=== PATIENT | male | born 1945 | race Caucasian/White ===

== ENCOUNTER 2017-08-28 03:44 | Inpatient (IN) | payer OTHER, MEDICARE ==
[2017-08-28] MEDS ORDERED: NITROSTAT SL ONE ×3 (03:45→03:57)
[2017-08-28] MEDS ORDERED: LASIX IV ONE ×4 (03:45→03:57)
[2017-08-28] MEDS ORDERED: LASIX 60 MG in NACL 0.9% 50 ML IV ONE (03:52)
--- NOTE | 2017-08-28 04:02 | Emergency Department Report ---
ED Shortness of Breath HPI - General Stated Complaint: STANLEY Time Seen by Provider: 08/28/17 03:54 Source: family, EMS Mode of arrival: Stretcher Limitations: No Limitations, Physical Limitation - History of Present Illness Initial Comments: Patient is 72 years old patient male brought in by EMS in acute respiratory distress. Patient had a history of congestive heart failure status post CABG and hypertension. Patient's son stated that patient's symptoms started this morning with difficulty breathing. No recent fever cough. No nausea no vomiting. Initial oxygen saturation by EMS report was 68% on room air, respiratory rate was 38/m patient immediately placed on BiPAP and given a breathing treatment by EMS. MD Complaint: shortness of breath, cough -: This morning Severity: severe Consistency: constant Known History Of: congestive heart failure Treatments Prior to Arrival: oxygen, bronchodilator - Related Data Home Medications Medication Instructions Recorded Confirmed Last Taken Losartan [Cozaar] 25 mg PO QDAY 09/23/14 08/28/17 08/27/17 Omeprazole [PriLOSEC] 40 mg PO DAILY 09/23/14 08/28/17 08/27/17 Furosemide [Lasix] 40 mg PO DAILY 01/11/15 08/28/17 08/27/17 Finasteride [Proscar] 5 mg PO QDAY 08/28/17 08/28/17 08/27/17 Tamsulosin HCl [Flomax] 0.4 mg PO DAILY 08/28/17 08/28/17 08/27/17 Previous Rx's Medication Instructions Recorded Last Taken Type Aspirin [Aspirin BABY CHEW TAB] 81 mg PO DAILY #30 tab.chew 11/29/15 08/27/17 Rx AtorvaSTATin [Lipitor] 40 mg PO DAILY #30 tablet 11/29/15 08/27/17 Rx Carvedilol [Coreg] 25 mg PO BID #60 tablet 11/29/15 08/27/17 Rx Clopidogrel [Plavix] 75 mg PO QDAY #30 tablet 11/29/15 08/27/17 Rx Insulin NPH/Regular [NovoLIN 70/30] 25 unit SUB-Q BIDDIAB #1 vial 11/29/1508/27 Rx Allergies Allergy/AdvReac Type Severity Reaction Status Date / Time lisinopril Allergy Severe Shortness Verified 11/28/15 12:04 of Breath ED Review of Systems ROS: Stated complaint: STANLEY Other details as noted in HPI Comment: All other systems reviewed and negative Constitutional: denies: chills, fever Respiratory: orthopnea, shortness of breath, SOB with exertion, SOB at rest. denies: stridor, wheezing Cardiovascular: palpitations, dyspnea on exertion, orthopnea, edema. denies: chest pain Gastrointestinal: denies: abdominal pain, nausea, vomiting, diarrhea, constipation, hematemesis, melena, hematochezia Genitourinary: denies: urgency, frequency Neurological: denies: headache, weakness, numbness, paresthesias, confusion, abnormal gait, vertigo ED Past Medical Hx - Past Medical History Hx Hypertension: Yes Hx CVA: Yes (x3 right sided def) Hx Heart Attack/AMI: Yes Hx Congestive Heart Failure: Yes Hx Diabetes: Yes Hx Deep Vein Thrombosis: Yes - Surgical History Hx Open Heart Surgery: Yes Additional Surgical History: Bypass. pacemaker february 2015 - Social History Smoking Status: Never Smoker Substance Use Type: None - Medications Home Medications: Home Medications Medication Instructions Recorded Confirmed Last Taken Type Losartan [Cozaar] 25 mg PO QDAY 09/23/14 08/28/17 08/27/17 History Omeprazole [PriLOSEC] 40 mg PO DAILY 09/23/14 08/28/17 08/27/17 History Furosemide [Lasix] 40 mg PO DAILY 01/11/15 08/28/17 08/27/17 History Aspirin [Aspirin BABY CHEW TAB] 81 mg PO DAILY #30 tab.chew 11/29/15 08/28/17 Rx AtorvaSTATin [Lipitor] 40 mg PO DAILY #30 tablet 11/29/15 08/28/17 08/27/17 Rx Carvedilol [Coreg] 25 mg PO BID #60 tablet 11/29/15 08/28/17 08/27/17 Rx Clopidogrel [Plavix] 75 mg PO QDAY #30 tablet 11/29/15 08/28/17 08/27/17 Rx Insulin NPH/Regular [NovoLIN 70/30] 25 unit SUB-Q BIDDIAB #1 vial 11/29/1508/2808/27/17 Rx Finasteride [Proscar] 5 mg PO QDAY 08/28/17 08/28/17 08/27/17 History Tamsulosin HCl [Flomax] 0.4 mg PO DAILY 08/28/17 08/28/17 08/27/17 History ED Physical Exam - General Limitations: No Limitations, Physical Limitation General appearance: in distress (patient is tachypneic and in no acute respiratory distress) - Head Head exam: Present: atraumatic, normocephalic, normal inspection - Eye Eye exam: Present: normal appearance, PERRL - ENT ENT exam: Present: normal exam, normal orophraynx - Neck Neck exam: Present: normal inspection, full ROM. Absent: tenderness, meningismus, lymphadenopathy, thyromegaly - Respiratory Respiratory exam: Present: respiratory distress, rales, rhonchi, accessory muscle use, decreased breath sounds. Absent: wheezes, stridor - Cardiovascular Cardiovascular Exam: Present: tachycardia - GI/Abdominal GI/Abdominal exam: Present: soft, normal bowel sounds. Absent: distended, tenderness, guarding, rebound, rigid, organomegaly, mass, bruit, pulsatile mass , hernia - Extremities Exam Extremities exam: Present: normal inspection, full ROM, normal capillary refill , pedal edema. Absent: tenderness, joint swelling, calf tenderness - Back Exam Back exam: Present: normal inspection, full ROM. Absent: tenderness, CVA tenderness (R), CVA tenderness (L), muscle spasm, paraspinal tenderness, vertebral tenderness - Neurological Exam Neurological exam: Present: alert, oriented X3, CN II-XII intact, normal gait - Skin Skin exam: Present: warm, intact, normal color. Absent: cyanosis, diaphoretic, erythema ED Course Vital Signs 08/28/17 08/28/17 08/28/17 03:40 03:48 03:55 Pulse Rate 129 H 129 H Respiratory 40 H Rate Blood Pressure 254/157 Blood Pressure 254/157 [Left] O2 Sat by Pulse 63 L Oximetry 08/28/17 08/28/17 08/28/17 03:59 04:00 04:30 Pulse Rate 130 H 115 H 95 H Respiratory 38 H 33 H 45 H Rate Blood Pressure 143/89 254/157 211/108 Blood Pressure [Left] O2 Sat by Pulse 100 100 100 Oximetry 08/28/17 08/28/17 08/28/17 04:59 05:00 05:30 Pulse Rate 93 H 86 Respiratory 24 20 20 Rate Blood Pressure 165/99 171/102 Blood Pressure [Left] O2 Sat by Pulse 100 100 100 Oximetry 08/28/17 08/28/17 08/28/17 06:00 06:30 07:00 Pulse Rate 82 90 89 Respiratory 25 H 21 21 Rate Blood Pressure 171/102 196/121 208/118 Blood Pressure [Left] O2 Sat by Pulse 100 100 100 Oximetry 08/28/17 08/28/17 08/28/17 08:00 08:10 08:11 Pulse Rate 98 H 99 H 109 H Respiratory 20 28 H Rate Blood Pressure 207/125 221/125 221/125 Blood Pressure [Left] O2 Sat by Pulse 98 99 Oximetry 08/28/17 08/28/17 08/28/17 08:20 08:35 08:41 Pulse Rate 110 H 116 H Respiratory 25 H 31 H Rate Blood Pressure 221/125 175/101 175/101 Blood Pressure [Left] O2 Sat by Pulse 98 97 98 Oximetry 08/28/17 08/28/17 08:51 09:00 Pulse Rate 114 H 110 H Respiratory 14 26 H Rate Blood Pressure 175/101 Blood Pressure 175/101 [Left] O2 Sat by Pulse 99 97 Oximetry ED Medical Decision Making - Lab Data Result diagrams: 08/29/17 05:11 08/29/17 05:11 - EKG Data -: EKG Interpreted by Al EKG shows normal: sinus rhythm Rate: tachycardia - EKG Data Interpretation: no acute changes - Radiology Data Radiology results: report reviewed Referring Physician: KRISTINA TAYLOR Patient Name: RAVI BROOKS Date of : 1945 Sex: Male Report Date: 2017-08-28 Report Status: Finalized Findings [address] [address] XRay Report Signed Patient: RAVI BROOKS MR#: [id number] : 1945 Acct:[id number] Age/Sex: 72 / M ADM Date: 08/28/17 Loc: ED Attending Dr: Ordering Physician: KRISTINA TAYLOR Date of Service: 08/28/17 Procedure(s): XR chest 1V ap Accession Number(s): [id number] cc: KRISTINA TAYLOR Fluoro Time In Minutes: FINAL REPORT EXAM: XR CHEST 1V AP HISTORY: Dyspnea TECHNIQUE: A portable supine view the chest was obtained and compared to the study of 11/27/2015. FINDINGS: The heart is moderately enlarged. There are sternotomy sutures. There is a pacemaker overlying the left chest wall with the limb in the right ventricle. The lungs appear mildly congested. There are no localized infiltrates or effusions. The bones and soft tissues appear well maintained IMPRESSION: Cardiomegaly with mild vascular congestion. No localized infiltrates. Transcribed By: RB Dictated By: JUDE FORRESTER MD Electronically Authenticated By: JUDE FORRESTER MD Signed Date/Time: 08/28/1721 DD/ TD/TT: 08/28/1721 - Medical Decision Making Discussed with Dr. Bren Bai, I presented the patient, she agreed to admit the patient to her service. Critical Care Time: Yes Critical care time in (mins) excluding proc time.: 35 Critical care attestation.: If time is entered above; I have spent that time in minutes in the direct care of this critically ill patient, excluding procedure time. ED Disposition Clinical Impression: Acute respiratory distress, Acute respiratory failure with hypoxemia, Acute on chronic congestive heart failure Disposition: OP ADMIT IP TO THIS HOSP Is pt being admited?: Yes Condition: Stable
--- NOTE | 2017-08-28 04:25 | XRay Report ---
FINAL REPORT EXAM: XR CHEST 1V AP HISTORY: Dyspnea TECHNIQUE: A portable supine view the chest was obtained and compared to the study of 11/27/2015. FINDINGS: The heart is moderately enlarged. There are sternotomy sutures. There is a pacemaker overlying the left chest wall with the limb in the right ventricle. The lungs appear mildly congested. There are no localized infiltrates or effusions. The bones and soft tissues appear well maintained IMPRESSION: Cardiomegaly with mild vascular congestion. No localized infiltrates.
[2017-08-28 04:46] LABS: Basophils # (Auto) 0.1 K/mm3 (0.0-0.1); Basophils % (Auto) 0.6 % (0.0-1.8); Eosinophils # (Auto) 0.1 K/mm3 (0.0-0.4); Eosinophils % (Auto) 1.4 % (0.0-4.3); Hematocrit 45.4 % (35.5-45.6); Hemoglobin 15.1 gm/dl (11.8-15.2); Lymphocytes # (Auto) 1.4 K/mm3 (1.2-5.4); Lymphocytes % (Auto) 15.3 % (13.4-35.0); Mean Corpuscular HGB Conc 33 % (32-34); Mean Corpuscular Hemoglobin 29 pg (28-32); Mean Corpuscular Volume 86 fl (84-94); Monocytes # (Auto) 0.5 K/mm3 (0.0-0.8); Monocytes % (Auto) 5.4 % (0.0-7.3); Platelet Count 205 K/mm3 (140-440); Red Cell Distribution Width 13.8 % (13.2-15.2)
[2017-08-28 04:55] LABS: Albumin 4.2 g/dL (3.9-5); Calcium 8.7 mg/dL (8.4-10.2)
[2017-08-28 05:30] LABS: Chol/HDL Ratio 4.94 %
[2017-08-28] MEDS ORDERED: ZOFRAN IV PRN (05:50)
[2017-08-28] MEDS ORDERED: TYLENOL PO PRN (05:50)
--- NOTE | 2017-08-28 05:58 | History and Physical Report ---
History of Present Illness Date of examination: 08/28/17 History of present illness: 72-year-old a history of CHF, hypertension, diabetes, coronary artery disease, chronic kidney disease, history of CVA was brought to the emergency room because he was awoke from sleep with acute shortness of breath. He was hypoxic in the emergency room with saturation of 85%, he was placed on BiPAP and given IV Lasix. Patient is very me speaking, history was per the son Review Of Systems: Constitutional: no weight loss Ears, eyes, nose, mouth and throat: no nasal congestion, no nasal discharge, no sinus pressure, blurry vision, diplopia Neck: No neck pain or rigidity. Cardiovascular: No chest pain, palpitations Respiratory: No cough Gastrointestinal: No abdominal pain, hematochezia Genitourinary : no dysuria, frequency , hematuria Musculoskeletal: no muscle ache Integumentary: no rash, no pruritis Neurological: no parathesias, focal weakness Endocrine: no cold or heat intolerance, no polyuria or polydipsia Hematologic/Lymphatic: no easy bruising, no easy bleeding, no gland swelling Allergic/Immunologic: no urticaria, no angioedema. PAST MEDICAL HISTORY: CHF, hypertension, diabetes, coronary artery disease, chronic kidney disease, history of CVA PAST SURGICAL HISTORY:CABG, AICD FAMILY HISTORY: Hypertension SOCIAL HISTORY: Denies alcohol, tobacco, drugs Medications and Allergies Allergies Allergy/AdvReac Type Severity Reaction Status Date / Time lisinopril Allergy Severe Shortness Verified 11/28/15 12:04 of Breath Home Medications Medication Instructions Recorded Confirmed Last Taken Type Losartan [Cozaar] 25 mg PO QDAY 09/23/14 08/28/17 08/27/17 History Omeprazole [PriLOSEC] 40 mg PO DAILY 09/23/14 08/28/17 08/27/17 History Furosemide [Lasix] 40 mg PO DAILY 01/11/15 08/28/17 08/27/17 History Aspirin [Aspirin BABY CHEW TAB] 81 mg PO DAILY #30 tab.chew 11/29/15 08/28/17 Rx AtorvaSTATin [Lipitor] 40 mg PO DAILY #30 tablet 11/29/15 08/28/17 08/27/17 Rx Carvedilol [Coreg] 25 mg PO BID #60 tablet 11/29/15 08/28/17 08/27/17 Rx Clopidogrel [Plavix] 75 mg PO QDAY #30 tablet 11/29/15 08/28/17 08/27/17 Rx Insulin NPH/Regular [NovoLIN 70/30] 25 unit SUB-Q BIDDIAB #1 vial 11/29/1508/2808/27/17 Rx Finasteride [Proscar] 5 mg PO QDAY 08/28/17 08/28/17 08/27/17 History Tamsulosin HCl [Flomax] 0.4 mg PO DAILY 08/28/17 08/28/17 08/27/17 History Active Meds: Active Medications Acetaminophen (Tylenol) 650 mg PO Q4H PRN PRN Reason: Pain MILD(1-3)/Fever >100.5/LEO Aspirin (Baby Aspirin) 81 mg PO DAILY [facility] Atorvastatin Calcium (Lipitor) 40 mg PO DAILY [facility] Carvedilol (Coreg) 25 mg PO BID [facility] Clopidogrel Bisulfate (Plavix) 75 mg PO QDAY [facility] Enoxaparin Sodium (Lovenox) 30 mg SUB-Q QDAY [facility] Finasteride (Proscar) 5 mg PO QDAY [facility] Losartan Potassium (Cozaar) 25 mg PO QDAY [facility] Miscellaneous Medication (Omeprazole [Prilosec]) 40 mg PO DAILY [facility] Ondansetron HCl (Zofran) 4 mg IV Q8H PRN PRN Reason: N/V unrelieved by Henrik Tamsulosin HCl (Flomax) 0.4 mg PO DAILY [facility] Exam - Physical Exam Narrative exam: Gen. appearance: Patient lying in bed in no acute distress HEENT: Normocephalic/atraumatic, pupils equal round reactive to light, extra occular movement intact, no scleral icterus, no JVD or thyromegaly or nodule, neck is supple, mucous membrane moist, no erythema or exudate Heart: S1-S2, regular rate and rhythm Lungs: Crackles bilateral breathing comfortable Abdomen: Positive bowel sounds, tender left lower quadrant, nondistended, no organomegaly Extremities: No edema, cyanosis, clubbing Neuro:: Oriented 3 , cranial nerves II-12 intact, speech, motor intact Skin: No rash, nodules, warm dry - Constitutional Vitals: Temp Pulse Resp BP Pulse Ox 86 20 171/102 100 08/28/17 05:30 08/28/17 05:30 08/28/17 05:30 08/28/17 05:30 Results - Labs CBC & Chem 7: 08/28/17 04:01 08/28/17 04:01 Labs: Abnormal lab results 08/28/17 08/28/17 08/28/17 Range/Units 04:01 04:01 04:01 RBC 5.30 H (3.65-5.03) M/mm3 Seg Neutrophils % 77.3 H (40.0-70.0) % Potassium 5.1 H (3.6-5.0) mmol/L BUN 21 H (9-20) mg/dL Creatinine 1.7 H (0.8-1.5) mg/dL Glucose 361 H (75-100) mg/dL Troponin T 0.061 H (0.00-0.029) ng/mL NT-Pro-B Natriuret Pep 5522 H (0-900) pg/mL Triglycerides 263 H (2-149) mg/dL HDL Cholesterol 38 L (40-59) mg/dL - Imaging and Cardiology EKG: image reviewed Chest x-ray: image reviewed Assessment and Plan Assessment Acute respiratory failure Acute on chronic heart failure, systolic Abdominal pain on physical exam Elevated cardiac enzymes Coronary artery disease Hypertension Diabetes type 2 Chronic kidney disease History of severe Plan Admit to medicine Start BiPAP, IV Lasix, continue beta kristy, ETHEL inhibitor, aspirin Check cardiac enzymes, echo, consult cardiology Monitor I's and O's, daily weights Check fingersticks, initiate insulin sliding scale Obtain CAT scan of the abdomen and pelvis DVT prophylaxis
[2017-08-28] MEDS ORDERED: LASIX ONE (06:04)
[2017-08-28] MEDS: LASIX IV SCH ×2 (06:18→18:05)
[2017-08-28 07:13] LABS: Creatine Kinase MB 30.5 ng/mL (0.0-4.0)
[2017-08-28] MEDS ORDERED: APRESOLINE ONE (08:04)
[2017-08-28] MEDS ORDERED: APRESOLINE IV ONE ×2 (08:08→16:00)
--- NOTE | 2017-08-28 08:48 | Cat Scan Report ---
CT ABDOMEN PELVIS WITHOUT CONTRAST: HISTORY: abdominal pain. COMPARISON: none. TECHNIQUE: Helical CT in 1.25mm intervals without IV contrast. Sagittal and coronal reconstructions. FINDINGS: Lung bases: Mild cardiomegaly and trace bilateral pleural effusions. Liver: Normal. Biliary system: Normal. Pancreas: Normal. Spleen: Normal. Kidneys/ureters/bladder: The bladder is markedly distended. No bladder wall thickening or filling defect is detected. There is mild bilateral hydronephrosis as well is probably secondary to a distended bladder. No ureteral stones identified. The kidneys are within normal limits on noncontrast CT. Adrenal glands: Normal. Aorta: Mild diffuse calcifications. No aneurysm. Intestines: Within normal limits given no oral contrast was administered. Appendix: Normal. Ascites: None. Adenopathy: None. Musculoskeletal: Normal. IMPRESSION: Markedly distended bladder and mild bilateral hydronephrosis. Correlate for bladder outlet obstruction. Mild cardiomegaly and trace pleural effusions.
[2017-08-28 09:43] LABS: Bilirubin,Urine NEG (Negative); Blood,Urine SM (Negative); Nitrite,Urine NEG (Negative); Protein,Urine <15 mg/dL mg/dL (Negative); Urobilinogen,Urine < 2.0 mg/dL (<2.0); WBC,Urine < 1.0 /HPF (0.0-6.0)
[2017-08-28 09:53] LABS: Color,Urine Yellow (Yellow)
[2017-08-28] MEDS ORDERED: NON-FORMULARY (Omeprazole [Prilosec] 40 MG) PO SCH (10:00)
[2017-08-28] MEDS ORDERED: LOVENOX SUB-Q SCH (10:00)
[2017-08-28] MEDS: BABY ASPIRIN PO SCH (10:35)
[2017-08-28] MEDS: PROTONIX PO SCH (10:35)
[2017-08-28] MEDS: COREG PO SCH ×2 (10:36→22:20)
[2017-08-28] MEDS: PLAVIX PO SCH (10:36)
[2017-08-28] MEDS: COZAAR PO SCH (10:36)
[2017-08-28] MEDS: PROSCAR PO SCH (10:37)
[2017-08-28] MEDS: FLOMAX PO SCH (10:37)
--- NOTE | 2017-08-28 11:47 | Consultation ---
History of Present Illness Consult date: 08/28/17 Consult reason: congestive heart failure History of present illness: This is a 72 year old [place] man with multiple medical problems. He has a history of coronary artery disease with remote three-way coronary artery bypass grafting. In 2013 he underwent stenting of a saphenous vein graft to the LAD. He has an ischemic cardiomyopathy and has an indwelling cardiac defibrillator. His most recent cardiac workup was done in 2014. A persantine thallium stress test showed a fixed defect with no ischemia. An echocardiogram reports at least moderate left ventricular hypertrophy, LV ejection fraction 30-35%. Patient was brought to this hospital with complaints of shortness of breath. History unobtainable due to language barrier. Review of records noted patient severely hypertensive with a blood pressure 254/157 on presentation. A chest x- ray reports cardiomegaly with vascular congestion. Noted a CK/MB of 30 with a relative index of 6.1. Troponin of 0.563. Creatinine of 1.7. A 12 lead ECG is a sinus tachycardia, no acute ischemic changes. Cardiology consultation was requested for further evaluation. Medications and Allergies Allergies Allergy/AdvReac Type Severity Reaction Status Date / Time lisinopril Allergy Severe Shortness Verified 11/28/15 12:04 of Breath Home Medications Medication Instructions Recorded Confirmed Last Taken Type Losartan [Cozaar] 25 mg PO QDAY 09/23/14 08/28/17 08/27/17 History Omeprazole [PriLOSEC] 40 mg PO DAILY 09/23/14 08/28/17 08/27/17 History Furosemide [Lasix] 40 mg PO DAILY 01/11/15 08/28/17 08/27/17 History Aspirin [Aspirin BABY CHEW TAB] 81 mg PO DAILY #30 tab.chew 11/29/15 08/28/17 Rx AtorvaSTATin [Lipitor] 40 mg PO DAILY #30 tablet 11/29/15 08/28/17 08/27/17 Rx Carvedilol [Coreg] 25 mg PO BID #60 tablet 11/29/15 08/28/17 08/27/17 Rx Clopidogrel [Plavix] 75 mg PO QDAY #30 tablet 11/29/15 08/28/17 08/27/17 Rx Insulin NPH/Regular [NovoLIN 70/30] 25 unit SUB-Q BIDDIAB #1 vial 0408/2808/27/17 Rx Finasteride [Proscar] 5 mg PO QDAY 08/28/17 08/28/17 08/27/17 History Tamsulosin HCl [Flomax] 0.4 mg PO DAILY 08/28/17 08/28/17 08/27/17 History Active Meds: Active Medications Acetaminophen (Tylenol) 650 mg PO Q4H PRN PRN Reason: Pain MILD(1-3)/Fever >100.5/LEO Aspirin (Baby Aspirin) 81 mg PO DAILY [facility] Last Admin: 08/28/17 10:35 Dose: 81 mg Atorvastatin Calcium (Lipitor) 40 mg PO DAILY [facility] Last Admin: 08/28/17 10:37 Dose: 40 mg Carvedilol (Coreg) 25 mg PO BID [facility] Last Admin: 08/28/17 10:36 Dose: 25 mg Clopidogrel Bisulfate (Plavix) 75 mg PO QDAY [facility] Last Admin: 08/28/17 10:36 Dose: 75 mg Enoxaparin Sodium (Lovenox) 30 mg SUB-Q QDAY [facility] Last Admin: 08/28/17 10:35 Dose: 30 mg Finasteride (Proscar) 5 mg PO QDAY [facility] Last Admin: 08/28/17 10:37 Dose: 5 mg Furosemide (Lasix) 40 mg IV BID@0600,1800 [facility] Last Admin: 08/28/17 06:18 Dose: 40 mg Hydralazine HCl (Apresoline) 20 mg IV Q4HR [facility] Losartan Potassium (Cozaar) 25 mg PO QDAY [facility] Last Admin: 08/28/17 10:36 Dose: 25 mg Ondansetron HCl (Zofran) 4 mg IV Q8H PRN PRN Reason: N/V unrelieved by Henrik Pantoprazole Sodium (Protonix) 40 mg PO DAILY [facility] Last Admin: 08/28/17 10:35 Dose: 40 mg Tamsulosin HCl (Flomax) 0.4 mg PO DAILY [facility] Last Admin: 08/28/17 10:37 Dose: 0.4 mg Physical Examination Vital Signs Pulse Ox 63 L 08/28/17 03:40 General appearance: no acute distress HEENT: Positive: PERRL Cardiac: Positive: Tachycardia Neuro: Positive: Grossly Intact Extremities: Present: edema (unilateral edema) Results 08/28/17 04:01 08/28/17 04:01 Cardiac Enzymes 08/28/17 08/28/17 Range/Units 04:01 06:35 AST 27 (5-40) units/L CK-MB (CK-2) 30.5 H (0.0-4.0) ng/mL Lipids 08/28/17 Range/Units 04:01 Triglycerides 263 H (2-149) mg/dL Cholesterol 188 (50-199) mg/dL HDL Cholesterol 38 L (40-59) mg/dL Cholesterol/HDL Ratio 4.94 % CBC 08/28/17 Range/Units 04:01 WBC 9.3 (4.5-11.0) K/mm3 RBC 5.30 H (3.65-5.03) M/mm3 Hgb 15.1 (11.8-15.2) gm/dl Hct 45.4 (35.5-45.6) % Plt Count 205 (140-440) K/mm3 Lymph # 1.4 (1.2-5.4) K/mm3 Pratt # 0.5 (0.0-0.8) K/mm3 Eos # 0.1 (0.0-0.4) K/mm3 Baso # 0.1 (0.0-0.1) K/mm3 Comprehensive Metabolic Panel 08/28/17 Range/Units 04:01 Sodium 137 (137-145) mmol/L Potassium 5.1 H (3.6-5.0) mmol/L Chloride 98.3 (98-107) mmol/L Carbon Dioxide 24 (22-30) mmol/L BUN 21 H (9-20) mg/dL Creatinine 1.7 H (0.8-1.5) mg/dL Glucose 361 H (75-100) mg/dL Calcium 8.7 (8.4-10.2) mg/dL AST 27 (5-40) units/L ALT 24 (7-56) units/L Alkaline Phosphatase 103 (35-129) units/L Total Protein 7.2 (6.3-8.2) g/dL Albumin 4.2 (3.9-5) g/dL Assessment and Plan Hypertension -uncontrolled NSTEMI Acute renal failure Ischemic Cardiomyopathy ETHEL-i allergy Presence of ICD (BSC) Coronary Artery Diesease s/p remote 3 vessel Bypass Vein Graft PCI of the vein graft to the LAD 06/16/14 no ischemia on MPI 03/2015 Diabetes Mellitus Hyperlipidemia prior CVA
[2017-08-28] MEDS ORDERED: HEPARIN 10,000 UNITS/10 ML IV ONE (12:30)
[2017-08-28 14:00] LABS: Hematocrit 45.9 % (35.5-45.6)
[2017-08-28 14:11] LABS: INR 0.98 (0.87-1.13); Partial Thromboplastin Time 35.9 Sec. (24.2-36.6)
[2017-08-28] MEDS: HEPARIN/ 0.45% NACL-25,000 UNIT/500 ML 25,000 UNIT/500 ML BAG IV SCH ×2 (14:42→23:19)
[2017-08-28] MEDS: APRESOLINE IV SCH ×2 (14:43→14:44)
--- NOTE | 2017-08-28 15:36 | Event Note ---
Date: 08/28/17 72-year-old male patient was admitted this morning with acute respiratory distress, Patient in mild distress because of urinary retention, however felt better after Garcia catheterization Vital signs reviewed Physical examination; Head atraumatic normocephalic Neck supple no lymphadenopathy JVD Lungs bilateral air entry, no rales Abdomen soft nontender bowel sounds are present Bilateral lower extremity pedal edema [employer] alert and awake responding to simple questions confused at times Psych; mild anxiety no depression Skin; chronic changes Assessment and plan;, --Acute hypoxic respiratory failure; secondary to acute exacerbation of chronic systolic congestive heart failure, new anti-failure medications --Acute on chronic systolic congestive heart failure; ejection fraction 30-35% Cardiology evaluated the patient and optimize the medication --Urinary retention; with evidence of hydronephrosis; Garcia was placed and drained large amounts of urine, we'll check renal ultrasound to evaluate hydronephrosis if needed, if persistent , will consult urology --History of BPH; continue Proscar, Flomax --Acute renal failure; secondary to outlet obstruction, closely monitor --Non-ST elevation SC; cardiology evaluated the patient, optimize medications --CAD status post CABG; continue current cardiac medications --Status post ICD; stable --Accelerated hypertension; managed with multiple antihypertensives, closely monitor --DVT prophylaxis; patient is on heparin drip --Full CODE STATUS Closely monitor the patient and adjust the management as needed Plan of care discussed with the patient his family member and the nurse Consults noted and appreciated
[2017-08-28] MEDS ORDERED: APRESOLINE IV PRN (15:42)
[2017-08-28] MEDS: NOVOLOG SUB-Q SCH (22:20)
[2017-08-29] MEDS: APRESOLINE PO SCH ×4 (04:15→22:10)
[2017-08-29 05:53] LABS: Basophils % (Auto) 0.5 % (0.0-1.8); Eosinophils % (Auto) 0.5 % (0.0-4.3); Hematocrit 44.5 % (35.5-45.6); Hemoglobin 14.9 gm/dl (11.8-15.2); Lymphocytes # (Auto) 1.1 K/mm3 (1.2-5.4); Lymphocytes % (Auto) 11.7 % (13.4-35.0); Mean Corpuscular HGB Conc 34 % (32-34); Mean Corpuscular Hemoglobin 29 pg (28-32); Mean Corpuscular Volume 86 fl (84-94); Monocytes # (Auto) 0.6 K/mm3 (0.0-0.8); Monocytes % (Auto) 6.2 % (0.0-7.3); Platelet Count 179 K/mm3 (140-440); Red Blood Count 5.15 M/mm3 (3.65-5.03); Red Cell Distribution Width 14.1 % (13.2-15.2)
[2017-08-29] MEDS: LASIX IV SCH ×2 (06:00→17:56)
[2017-08-29 06:12] LABS: Calcium 9.2 mg/dL (8.4-10.2)
[2017-08-29] MEDS: HEPARIN/ 0.45% NACL-25,000 UNIT/500 ML 25,000 UNIT/500 ML BAG IV SCH (06:13)
[2017-08-29] MEDS: NOVOLOG SUB-Q SCH ×4 (10:16→22:11)
[2017-08-29] MEDS: PROSCAR PO SCH (10:16)
[2017-08-29] MEDS: PROTONIX PO SCH (10:17)
[2017-08-29] MEDS: FLOMAX PO SCH (10:17)
[2017-08-29] MEDS: PLAVIX PO SCH (10:17)
[2017-08-29] MEDS: COREG PO SCH ×2 (10:17→22:10)
[2017-08-29] MEDS: COZAAR PO SCH (10:18)
[2017-08-29] MEDS: BABY ASPIRIN PO SCH (10:18)
--- NOTE | 2017-08-29 10:46 | Progress Note ---
Assessment and Plan Acute systolic heart failure Hypertension -uncontrolled NSTEMI Acute on chronic renal failure Ischemic Cardiomyopathy ETHEL-i allergy Presence of ICD (BSC) Coronary Artery Disease s/p remote 3 vessel Bypass Vein Graft s/p PCI 06/16/14 no ischemia on MPI 03/2015 Diabetes Mellitus Hyperlipidemia prior CVA Subjective Date of service: 08/29/17 Interval history: Patient is non-Malay speaking. Son at bedside for translation who reports the patient breathing has improved. No reports of chest pain. BP still not optimal, currently 174/88. Objective Vital Signs Temp Pulse Resp BP BP Pulse Ox 08/29/17 10:17 103 H 174/88 08/29/17 09:36 98.2 F 103 H 20 174/88 94 08/29/17 06:41 99 H 08/29/17 06:00 155/90 08/29/17 04:44 101 H 93 08/29/17 04:43 98.1 F 100 H 20 159/85 96 08/29/17 04:15 139/72 08/29/17 00:02 97.9 F 92 H 18 139/72 95 08/28/17 22:20 144/77 08/28/17 20:56 101 H 08/28/17 20:00 98.7 F 101 H 22 147/77 147/77 94 08/28/17 17:13 97 H 136/73 08/28/17 16:54 97.9 F 97 H 20 136/73 95 08/28/17 15:16 97.9 F 97 H 0 L 136/73 95 08/28/17 11:30 106 H 22 136/65 08/28/17 11:21 134 H 18 139/60 08/28/17 11:17 126 H 15 175/101 - Physical Examination General: No Apparent Distress HEENT: Positive: PERRL Cardiac: Positive: Reg Rate and Rhythm Lungs: Positive: Decreased Breath Sounds Neuro: Positive: Grossly Intact Extremities: Present: edema (unilateral edema) - Labs and Meds Cardiac Enzymes 08/28/17 Range/Units 13:34 CK-MB (CK-2) 33.0 H (0.0-4.0) ng/mL Coagulation 08/28/17 Range/Units 13:34 PT 13.5 (12.2-14.9) Sec. INR 0.98 (0.87-1.13) APTT 35.9 (24.2-36.6) Sec. CBC 08/28/17 08/29/17 Range/Units 13:34 05:11 WBC 9.2 (4.5-11.0) K/mm3 RBC 5.15 H (3.65-5.03) M/mm3 Hgb 15.0 14.9 (11.8-15.2) gm/dl Hct 45.9 H 44.5 (35.5-45.6) % Plt Count 196 179 (140-440) K/mm3 Lymph # 1.1 L (1.2-5.4) K/mm3 [place] # 0.6 (0.0-0.8) K/mm3 Eos # 0.0 (0.0-0.4) K/mm3 Baso # 0.0 (0.0-0.1) K/mm3 Comprehensive Metabolic Panel 08/29/17 Range/Units 05:11 Sodium 140 (137-145) mmol/L Potassium 4.0 D (3.6-5.0) mmol/L Chloride 96.9 L (98-107) mmol/L Carbon Dioxide 26 (22-30) mmol/L BUN 32 H (9-20) mg/dL Creatinine 1.9 H (0.8-1.5) mg/dL Glucose 366 H (75-100) mg/dL Calcium 9.2 (8.4-10.2) mg/dL - Imaging and Cardiology EKG: image reviewed
--- NOTE | 2017-08-29 18:25 | Progress Note ---
Assessment and Plan Assessment and plan: --Acute on chronic systolic congestive heart failure; ejection fraction 30-35% New current anti-failure medications, input output monitoring, low-sodium diet, daily weights --Acute hypoxic respiratory failure; secondary to acute exacerbation of chronic systolic congestive heart failure, --Urinary retention; with evidence of hydronephrosis; Garcia was placed and drained large amounts of urine, we'll check renal ultrasound to evaluate hydronephrosis if needed, if persistent , will consult urology --History of BPH; continue Proscar, Flomax --Acute renal failure; secondary to outlet obstruction, closely monitor ---2 diabetes mellitus; uncontrolled, continue Accu-Chek sliding scale coverage and ADA diet A1c 10, increase insulin 7030 dose --Non-ST elevation [place]; cardiology evaluated the patient, optimize medications --CAD status post CABG; continue current cardiac medications s/p remote 3 vessel Bypass Vein Graft s/p PCI 06/16/14 no ischemia on MPI 03/2015 --Status post ICD; stable --Accelerated hypertension; managed with multiple antihypertensives, closely monitor --DVT prophylaxis; patient is on heparin drip --Full CODE STATUS Plan of care reviewed with the patient's son at the bedside, verbalizes understanding History Interval history: Patient seen and evaluated medical records reviewed Patient feels better no new complaints Congestive shortness of breath Vital signs reviewed stable Hospitalist Physical - Constitutional Vitals: Temp Pulse Resp BP Pulse Ox 97.8 F 90 20 122/71 95 08/29/17 18:11 08/29/17 18:11 08/29/17 18:11 08/29/17 18:11 08/29/17 18:11 General appearance: Present: no acute distress, well-nourished - EENT Eyes: Present: PERRL, EOM intact - Neck Neck: Present: supple, normal ROM - Respiratory Respiratory effort: normal Respiratory: bilateral: diminished, rales, negative: rhonchi, wheezing - Cardiovascular Rhythm: regular Heart Sounds: Present: S1 & S2 - Extremities Extremities: no ischemia, No edema Extremity abnormal: edema - Abdominal General gastrointestinal: soft, non-tender, non-distended, normal bowel sounds - Integumentary Integumentary: Present: clear, warm - Psychiatric Psychiatric: appropriate mood/affect, cooperative - Neurologic Neurologic: CNII-XII intact, moves all extremities Results - Labs CBC & Chem 7: 08/29/17 05:11 08/29/17 05:11 Labs: Laboratory Last Values WBC 9.2 K/mm3 (4.5-11.0) 08/29/17 05:11 RBC 5.15 M/mm3 (3.65-5.03) H 08/29/17 05:11 Hgb 14.9 gm/dl (11.8-15.2) 08/29/17 05:11 Hct 44.5 % (35.5-45.6) 08/29/17 05:11 MCV 86 fl (84-94) 08/29/17 05:11 MCH 29 pg (28-32) 08/29/17 05:11 MCHC 34 % (32-34) 08/29/17 05:11 RDW 14.1 % (13.2-15.2) 08/29/17 05:11 Plt Count 179 K/mm3 (140-440) 08/29/17 05:11 Lymph % (Auto) 11.7 % (13.4-35.0) L 08/29/17 05:11 [place] % (Auto) 6.2 % (0.0-7.3) 08/29/17 05:11 Eos % (Auto) 0.5 % (0.0-4.3) 08/29/17 05:11 Baso % (Auto) 0.5 % (0.0-1.8) 08/29/17 05:11 Lymph # 1.1 K/mm3 (1.2-5.4) L 08/29/17 05:11 [place] # 0.6 K/mm3 (0.0-0.8) 08/29/17 05:11 Eos # 0.0 K/mm3 (0.0-0.4) 08/29/17 05:11 Baso # 0.0 K/mm3 (0.0-0.1) 08/29/17 05:11 Seg Neutrophils % 81.1 % (40.0-70.0) H 08/29/17 05:11 Seg Neutrophils # 7.5 K/mm3 (1.8-7.7) 08/29/17 05:11 PT 13.5 Sec. (12.2-14.9) 08/28/17 13:34 INR 0.98 (0.87-1.13) 08/28/17 13:34 APTT 35.9 Sec. (24.2-36.6) 08/28/17 13:34 Heparin Anti-Xa Level 0.68 U.I./ml (0.3-0.7) 08/29/17 05:11 Sodium 140 mmol/L (137-145) 08/29/17 05:11 Potassium 4.0 mmol/L (3.6-5.0) D 08/29/17 05:11 Chloride 96.9 mmol/L (98-107) L 08/29/17 05:11 Carbon Dioxide 26 mmol/L (22-30) 08/29/17 05:11 Anion Gap 21 mmol/L 08/29/17 05:11 BUN 32 mg/dL (9-20) H 08/29/17 05:11 Creatinine 1.9 mg/dL (0.8-1.5) H 08/29/17 05:11 Estimated GFR 35 ml/min 08/29/17 05:11 BUN/Creatinine Ratio 17 % 08/29/17 05:11 Glucose 366 mg/dL (75-100) H 08/29/17 05:11 POC Glucose 332 (70-105) H 08/29/17 08:07 Hemoglobin A1c 10.0 % (4-6) H 08/29/17 05:11 Calcium 9.2 mg/dL (8.4-10.2) 08/29/17 05:11 Total Bilirubin 0.80 mg/dL (0.1-1.2) 08/28/17 04:01 AST 27 units/L (5-40) 08/28/17 04:01 ALT 24 units/L (7-56) 08/28/17 04:01 Alkaline Phosphatase 103 units/L (35-129) 08/28/17 04:01 Total Creatine Kinase 457 units/L (55-170) H 08/28/17 13:34 CK-MB (CK-2) 33.0 ng/mL (0.0-4.0) H 08/28/17 13:34 CK-MB (CK-2) Rel Index 7.2 (0-4) H 08/28/17 13:34 Troponin T 0.932 ng/mL (0.00-0.029) H* D 08/28/17 13:34 NT-Pro-B Natriuret Pep 5522 pg/mL (0-900) H 08/28/17 04:01 Total Protein 7.2 g/dL (6.3-8.2) 08/28/17 04:01 Albumin 4.2 g/dL (3.9-5) 08/28/17 04:01 Albumin/Globulin Ratio 1.4 % 08/28/17 04:01 Triglycerides 263 mg/dL (2-149) H 08/28/17 04:01 Cholesterol 188 mg/dL (50-199) 08/28/17 04:01 LDL Cholesterol Direct 98 mg/dL (50-130) 08/28/17 04:01 HDL Cholesterol 38 mg/dL (40-59) L 08/28/17 04:01 Cholesterol/HDL Ratio 4.94 % 08/28/17 04:01 Urine Color Yellow (Yellow) 08/28/17 08:53 Urine Turbidity Clear (Clear) 08/28/17 08:53 Urine pH 6.0 (5.0-7.0) 08/28/17 08:53 Ur Specific [place] 1.005 (1.003-1.030) 08/28/17 08:53 Urine Protein <15 mg/dl mg/dL (Negative) 08/28/17 08:53 Urine Glucose (UA) >=500 mg/dL (Negative) 08/28/17 08:53 Urine Ketones Neg mg/dL (Negative) 08/28/17 08:53 Urine Blood Sm (Negative) 08/28/17 08:53 Urine Nitrite Neg (Negative) 08/28/17 08:53 Urine Bilirubin Neg (Negative) 08/28/17 08:53 Urine Urobilinogen < 2.0 mg/dL (<2.0) 08/28/17 08:53 Ur Leukocyte Esterase Neg (Negative) 08/28/17 08:53 Urine WBC (Auto) < 1.0 /HPF (0.0-6.0) 08/28/17 08:53 Urine RBC (Auto) 1.0 /HPF (0.0-6.0) 08/28/17 08:53
[2017-08-29] MEDS ORDERED: DULCOLAX PR PRN (21:29)
[2017-08-30] MEDS: APRESOLINE PO SCH ×3 (06:07→23:08)
[2017-08-30] MEDS: LASIX IV SCH (06:07)
[2017-08-30 07:11] LABS: Hematocrit 44.1 % (35.5-45.6); Hemoglobin 14.7 gm/dl (11.8-15.2)
[2017-08-30 07:25] LABS: Calcium 8.9 mg/dL (8.4-10.2)
[2017-08-30] MEDS: PROSCAR PO SCH (09:40)
[2017-08-30] MEDS: BABY ASPIRIN PO SCH (09:40)
[2017-08-30] MEDS: PROTONIX PO SCH (09:40)
[2017-08-30] MEDS: FLOMAX PO SCH (09:40)
[2017-08-30] MEDS: PLAVIX PO SCH (09:40)
[2017-08-30] MEDS: COREG PO SCH ×2 (09:41→23:09)
[2017-08-30] MEDS: NOVOLOG SUB-Q SCH ×4 (09:42→23:09)
[2017-08-30] MEDS: COZAAR PO SCH (09:48)
--- NOTE | 2017-08-30 10:26 | Progress Note ---
Assessment and Plan Acute systolic heart failure Hypertension -uncontrolled NSTEMI Acute on chronic renal failure Ischemic Cardiomyopathy ETHEL-i allergy Presence of ICD (BSC) Coronary Artery Disease s/p remote 3 vessel Bypass Vein Graft s/p PCI 06/16/14 no ischemia on MPI 03/2015 Diabetes Mellitus Hyperlipidemia prior CVA Subjective Date of service: 08/30/17 Interval history: Patient is non-Korean speaking. No distress noted. Labs shows a rise in creatinine, today 2.2. Objective Vital Signs Temp Pulse Resp BP BP Pulse Ox 08/30/17 09:48 94 H 174/94 08/30/17 09:41 94 H 170/94 08/30/17 09:16 98.0 F 94 H 20 171/93 95 08/30/17 08:00 97 08/30/17 05:00 98 H 08/30/17 04:56 97.9 F 99 H 20 168/91 94 08/30/17 00:49 97.4 F L 88 20 149/84 96 08/29/17 22:00 95 08/29/17 21:18 93 H 125/62 93 08/29/17 18:11 97.8 F 90 20 122/71 95 08/29/17 16:39 97.8 F 91 H 20 122/71 94 08/29/17 13:53 105 H 154/77 08/29/17 12:25 98.2 F 105 H 91 H 151/77 08/29/17 11:32 73 99 08/29/17 11:24 98.2 F 104 H 20 151/77 94 - Physical Examination General: No Apparent Distress HEENT: Positive: PERRL Cardiac: Positive: Reg Rate and Rhythm Lungs: Positive: Decreased Breath Sounds Neuro: Positive: Grossly Intact - Labs and Meds CBC 08/30/17 Range/Units 06:14 Hgb 14.7 (11.8-15.2) gm/dl Hct 44.1 (35.5-45.6) % Plt Count 178 (140-440) K/mm3 Comprehensive Metabolic Panel 08/30/17 Range/Units 06:14 Sodium 142 (137-145) mmol/L Potassium 3.8 (3.6-5.0) mmol/L Chloride 97.2 L (98-107) mmol/L Carbon Dioxide 29 (22-30) mmol/L BUN 37 H (9-20) mg/dL Creatinine 2.2 H (0.8-1.5) mg/dL Glucose 245 H (75-100) mg/dL Calcium 8.9 (8.4-10.2) mg/dL - Imaging and Cardiology EKG: image reviewed
--- NOTE | 2017-08-30 11:17 | Cat Scan Report ---
CT scan of abdomen and pelvis without IV contrast: History: Followup on hydronephrosis/abdominal pain. Findings: Normal lung bases. No pleural pericardial effusion. Normal liver spleen pancreas and gallbladder. Normal adrenals and kidney parenchyma. No hydronephrosis. Decompressed bladder with in situ urinary catheter. No free intraperitoneal fluid. No evidence of adenopathy. Gaseous colon with stool in colon. No evidence of appendicitis or diverticulitis. No bowel distention. Impression: No evidence of hydronephrosis the present study. No calculi along the course of the ureters or in the kidney parenchyma. .
--- NOTE | 2017-08-30 14:11 | Vascular Lab Report ---
LOWER EXTREMITY VENOUS DUPLEX: REASON FOR EXAM: Swelling of the lower extremities. COMMENTS ON THE RIGHT: All veins visualized are freely compressible without evidence of internal echogenicity. Flow is spontaneous and phasic throughout. COMMENTS ON THE LEFT: All veins visualized are freely compressible without evidence of internal echogenicity. Flow is spontaneous and phasic throughout. The left greater saphenous vein has been harvested for prior coronary artery bypass grafting. IMPRESSION: No evidence of acute or chronic deep venous thrombosis in either lower extremity.
--- NOTE | 2017-08-30 15:02 | Progress Note ---
Assessment and Plan Assessment and plan: --Acute on chronic systolic congestive heart failure; ejection fraction 30-35% New current anti-failure medications, input output monitoring, low-sodium diet, daily weights --Acute hypoxic respiratory failure; secondary to acute exacerbation of chronic systolic congestive heart failure, --Urinary retention; with evidence of hydronephrosis; Garcia was placed and drained large amounts of urine, Repeat CT scan did not show any hydronephrosis, negative study --History of BPH; continue Proscar, Flomax --Acute renal failure; was needing renal function probably due to diuresis , changed to Lasix 40 daily instead of twice a day ---2 diabetes mellitus; uncontrolled, continue Accu-Chek sliding scale coverage and ADA diet A1c 10, increase insulin 7030 dose --Non-ST elevation [place]; cardiology evaluated the patient, optimize medications --CAD status post CABG; continue current cardiac medications s/p remote 3 vessel Bypass Vein Graft s/p PCI 06/16/14 no ischemia on MPI 03/2015 --Status post ICD; stable --Accelerated hypertension; managed with multiple antihypertensives, closely monitor --DVT prophylaxis; patient is on heparin drip --PT evaluation and management DC home on home health when medically stable in 1-2 days --Full CODE STATUS Plan of care reviewed with the patient's son at the bedside, verbalizes understanding History Interval history: Patient seen and examined medical records reviewed No new events reported by the nursing staff CT abdomen and pelvis done today did not reveal hydronephrosis Patient's generalized anasarca significantly improved No new complaints Vital signs stable Hospitalist Physical - Constitutional Vitals: Temp Pulse Resp BP Pulse Ox 98.2 F 86 20 98/52 92 08/30/17 12:36 08/30/17 12:36 08/30/17 12:36 08/30/17 12:36 08/30/17 12:36 General appearance: Present: no acute distress, well-nourished - EENT Eyes: Present: PERRL, EOM intact - Neck Neck: Present: supple, normal ROM - Respiratory Respiratory effort: normal Respiratory: bilateral: diminished, negative: rales, rhonchi, wheezing - Cardiovascular Rhythm: regular Heart Sounds: Present: S1 & S2 - Extremities Extremities: no ischemia Extremity abnormal: edema - Abdominal General gastrointestinal: soft, non-tender, non-distended, normal bowel sounds - Integumentary Integumentary: Present: clear, warm - Psychiatric Psychiatric: appropriate mood/affect, cooperative - Neurologic Neurologic: CNII-XII intact, moves all extremities Results - Labs CBC & Chem 7: 08/30/17 06:14 08/30/17 06:14 Labs: Laboratory Last Values WBC 9.2 K/mm3 (4.5-11.0) 08/29/17 05:11 RBC 5.15 M/mm3 (3.65-5.03) H 08/29/17 05:11 Hgb 14.7 gm/dl (11.8-15.2) 08/30/17 06:14 Hct 44.1 % (35.5-45.6) 08/30/17 06:14 MCV 86 fl (84-94) 08/29/17 05:11 MCH 29 pg (28-32) 08/29/17 05:11 MCHC 34 % (32-34) 08/29/17 05:11 RDW 14.1 % (13.2-15.2) 08/29/17 05:11 Plt Count 178 K/mm3 (140-440) 08/30/17 06:14 Lymph % (Auto) 11.7 % (13.4-35.0) L 08/29/17 05:11 [place] % (Auto) 6.2 % (0.0-7.3) 08/29/17 05:11 Eos % (Auto) 0.5 % (0.0-4.3) 08/29/17 05:11 Baso % (Auto) 0.5 % (0.0-1.8) 08/29/17 05:11 Lymph # 1.1 K/mm3 (1.2-5.4) L 08/29/17 05:11 [place] # 0.6 K/mm3 (0.0-0.8) 08/29/17 05:11 Eos # 0.0 K/mm3 (0.0-0.4) 08/29/17 05:11 Baso # 0.0 K/mm3 (0.0-0.1) 08/29/17 05:11 Seg Neutrophils % 81.1 % (40.0-70.0) H 08/29/17 05:11 Seg Neutrophils # 7.5 K/mm3 (1.8-7.7) 08/29/17 05:11 PT 13.5 Sec. (12.2-14.9) 08/28/17 13:34 INR 0.98 (0.87-1.13) 08/28/17 13:34 APTT 35.9 Sec. (24.2-36.6) 08/28/17 13:34 Heparin Anti-Xa Level 0.43 U.I./ml (0.3-0.7) 08/30/17 06:14 Sodium 142 mmol/L (137-145) 08/30/17 06:14 Potassium 3.8 mmol/L (3.6-5.0) 08/30/17 06:14 Chloride 97.2 mmol/L (98-107) L 08/30/17 06:14 Carbon Dioxide 29 mmol/L (22-30) 08/30/17 06:14 Anion Gap 20 mmol/L 08/30/17 06:14 BUN 37 mg/dL (9-20) H 08/30/17 06:14 Creatinine 2.2 mg/dL (0.8-1.5) H 08/30/17 06:14 Estimated GFR 30 ml/min 08/30/17 06:14 BUN/Creatinine Ratio 17 % 08/30/17 06:14 Glucose 245 mg/dL (75-100) H 08/30/17 06:14 POC Glucose 227 (70-105) H 08/29/17 21:17 Hemoglobin A1c 10.0 % (4-6) H 08/29/17 05:11 Calcium 8.9 mg/dL (8.4-10.2) 08/30/17 06:14 Total Bilirubin 0.80 mg/dL (0.1-1.2) 08/28/17 04:01 AST 27 units/L (5-40) 08/28/17 04:01 ALT 24 units/L (7-56) 08/28/17 04:01 Alkaline Phosphatase 103 units/L (35-129) 08/28/17 04:01 Total Creatine Kinase 457 units/L (55-170) H 08/28/17 13:34 CK-MB (CK-2) 33.0 ng/mL (0.0-4.0) H 08/28/17 13:34 CK-MB (CK-2) Rel Index 7.2 (0-4) H 08/28/17 13:34 Troponin T 0.932 ng/mL (0.00-0.029) H* D 08/28/17 13:34 NT-Pro-B Natriuret Pep 5522 pg/mL (0-900) H 08/28/17 04:01 Total Protein 7.2 g/dL (6.3-8.2) 08/28/17 04:01 Albumin 4.2 g/dL (3.9-5) 08/28/17 04:01 Albumin/Globulin Ratio 1.4 % 08/28/17 04:01 Triglycerides 263 mg/dL (2-149) H 08/28/17 04:01 Cholesterol 188 mg/dL (50-199) 08/28/17 04:01 LDL Cholesterol Direct 98 mg/dL (50-130) 08/28/17 04:01 HDL Cholesterol 38 mg/dL (40-59) L 08/28/17 04:01 Cholesterol/HDL Ratio 4.94 % 08/28/17 04:01 Urine Color Yellow (Yellow) 08/28/17 08:53 Urine Turbidity Clear (Clear) 08/28/17 08:53 Urine pH 6.0 (5.0-7.0) 08/28/17 08:53 Ur Specific [place] 1.005 (1.003-1.030) 08/28/17 08:53 Urine Protein <15 mg/dl mg/dL (Negative) 08/28/17 08:53 Urine Glucose (UA) >=500 mg/dL (Negative) 08/28/17 08:53 Urine Ketones Neg mg/dL (Negative) 08/28/17 08:53 Urine Blood Sm (Negative) 08/28/17 08:53 Urine Nitrite Neg (Negative) 08/28/17 08:53 Urine Bilirubin Neg (Negative) 08/28/17 08:53 Urine Urobilinogen < 2.0 mg/dL (<2.0) 08/28/17 08:53 Ur Leukocyte Esterase Neg (Negative) 08/28/17 08:53 Urine WBC (Auto) < 1.0 /HPF (0.0-6.0) 08/28/17 08:53 Urine RBC (Auto) 1.0 /HPF (0.0-6.0) 08/28/17 08:53
[2017-08-31 06:39] LABS: Basophils % (Auto) 0.6 % (0.0-1.8); Eosinophils # (Auto) 0.2 K/mm3 (0.0-0.4); Eosinophils % (Auto) 2.9 % (0.0-4.3); Hematocrit 44.8 % (35.5-45.6); Hemoglobin 14.9 gm/dl (11.8-15.2); Lymphocytes # (Auto) 1.3 K/mm3 (1.2-5.4); Lymphocytes % (Auto) 16.4 % (13.4-35.0); Mean Corpuscular HGB Conc 33 % (32-34); Mean Corpuscular Hemoglobin 29 pg (28-32); Mean Corpuscular Volume 87 fl (84-94); Monocytes # (Auto) 0.8 K/mm3 (0.0-0.8); Monocytes % (Auto) 9.7 % (0.0-7.3); Platelet Count 170 K/mm3 (140-440); Red Blood Count 5.15 M/mm3 (3.65-5.03); Red Cell Distribution Width 14.1 % (13.2-15.2)
[2017-08-31] MEDS: APRESOLINE PO SCH ×2 (06:39→14:45)
[2017-08-31 06:59] LABS: Calcium 9.2 mg/dL (8.4-10.2)
[2017-08-31] MEDS: NOVOLOG SUB-Q SCH ×2 (08:43→13:46)
[2017-08-31] MEDS ORDERED: LASIX PO SCH (10:00)
[2017-08-31] MEDS ORDERED: LOVENOX SUB-Q SCH (10:00)
[2017-08-31] MEDS: BABY ASPIRIN PO SCH (10:59)
[2017-08-31] MEDS: COZAAR PO SCH (11:00)
[2017-08-31] MEDS: COREG PO SCH (11:00)
[2017-08-31] MEDS: FLOMAX PO SCH (11:00)
[2017-08-31] MEDS: PLAVIX PO SCH (11:02)
[2017-08-31] MEDS: PROTONIX PO SCH (11:03)
[2017-08-31] MEDS: PROSCAR PO SCH (11:03)
--- NOTE | 2017-08-31 12:51 | Discharge Summary ---
Providers - Providers Date of Admission: 08/28/17 05:50 Date of discharge: 08/31/17 Attending physician: ENRICO MERCADO 08/28/17 05:50 Consult to Physician [CONS] Routine Consulting Provider: NUNO MA Reason For Exam: CHF Place consult to:: Dr. Ma Notified:: Charlotte HANNON Phone number called:: Was contact made?: Yes If yes, spoke with:: [facility] service Time called:: 08:36 08/30/17 15:12 Physical Therapy Evaluation and Treat [CONS] Routine Comment: Reason For Exam: debility/chf Primary care physician: DOMENICO STAUFFER Hospitalization Condition: Stable Hospital course: --Acute on chronic systolic congestive heart failure; ejection fraction 30-35% New current anti-failure medications, input output monitoring, low-sodium diet, daily weights --Acute hypoxic respiratory failure; secondary to acute exacerbation of chronic systolic congestive heart failure, --Urinary retention; with evidence of hydronephrosis; Garcia was placed and drained large amounts of urine, Repeat CT scan did not show any hydronephrosis, negative study --History of BPH; continue Proscar, Flomax --Acute renal failure; was needing renal function probably due to diuresis , changed to Lasix 40 daily instead of twice a day ---2 diabetes mellitus; uncontrolled, continue Accu-Chek sliding scale coverage and ADA diet A1c 10, increase insulin 7030 dose --Non-ST elevation [place]; cardiology evaluated the patient, optimize medications --CAD status post CABG; continue current cardiac medications s/p remote 3 vessel Bypass Vein Graft s/p PCI 06/16/14 no ischemia on MPI 03/2015 --Status post ICD; stable --Accelerated hypertension; managed with multiple antihypertensives, closely monitor Disposition: [id number] HOME UNDER HOME [facility] Time spent for discharge: 32 min Core Measure Documentation - Palliative Care Palliative Care/ Comfort Measures: Not Applicable - Core Measures Any of the following diagnoses?: none Exam - Constitutional Vitals: Temp Pulse Resp BP Pulse Ox 98.7 F 90 16 150/62 96 08/31/17 07:55 08/31/17 09:57 08/31/17 07:55 08/31/17 07:55 08/31/17 09:58 General appearance: Present: no acute distress, well-nourished - EENT Eyes: Present: PERRL, EOM intact - Neck Neck: Present: supple, normal ROM - Respiratory Respiratory effort: normal Respiratory: bilateral: diminished, negative: rales, rhonchi, wheezing - Cardiovascular Rhythm: regular Heart Sounds: Present: S1 & S2 - Extremities Extremities: no ischemia Extremity abnormal: edema - Abdominal General gastrointestinal: Present: soft, non-tender, non-distended, normal bowel sounds - Integumentary Integumentary: Present: clear, warm - Musculoskeletal Musculoskeletal: strength equal bilaterally - Psychiatric Psychiatric: appropriate mood/affect, other (minimally communicative) - Neurologic Neurologic: moves all extremities Plan Activity: advance as tolerated, fall precautions Diet: low salt, diabetic Special Instructions: physical therapy Additional Instructions: Low-salt diet. Exercise as tolerated. History of chest pain or shortness of breath. Contact M.D. or to the emergency room Follow up with: ZENIA MILLIGAN MD [Staff Physician] - 7 Days DOMENICO STAUFFER MD [Primary Care Provider] - 3-5 Days TERENCE TEE MD [Staff Physician] - 7 Days OBDULIA BIRMINGHAM MD [Staff Physician] - 7 Days Prescriptions: hydrALAZINE [Apresoline TAB] 25 mg PO Q8HR #90 tab
[2017-08-31 13:00] VITALS: BP 136/53
--- NOTE | 2017-08-31 17:38 | Progress Note ---
Assessment and Plan Assessment and plan: --Acute on chronic systolic congestive heart failure; ejection fraction 30-35% New current anti-failure medications, input output monitoring, low-sodium diet, daily weights --Acute hypoxic respiratory failure; secondary to acute exacerbation of chronic systolic congestive heart failure, --Urinary retention; with evidence of hydronephrosis; Garcia was placed and drained large amounts of urine, Repeat CT scan did not show any hydronephrosis, negative study --History of BPH; continue Proscar, Flomax --Acute renal failure; was needing renal function probably due to diuresis , changed to Lasix 40 daily instead of twice a day ---2 diabetes mellitus; uncontrolled, continue Accu-Chek sliding scale coverage and ADA diet A1c 10, increase insulin 7030 dose --Non-ST elevation SC; cardiology evaluated the patient, optimize medications --CAD status post CABG; continue current cardiac medications s/p remote 3 vessel Bypass Vein Graft s/p PCI 06/16/14 no ischemia on MPI 03/2015 --Status post ICD; stable --Accelerated hypertension; managed with multiple antihypertensives, closely monitor --DVT prophylaxis --Full CODE STATUS --Discharge planning per Case management; possible home with home health tomorrow if stable DC Garcia, continue physical therapy History Interval history: Sincerely and evaluated medical records reviewed Feels better, repeat CT scan of the abdomen, no evidence of hydronephrosis Mild shortness of breath, alert awake oriented Vital signs stable Hospitalist Physical - Constitutional Vitals: Temp Pulse Resp BP Pulse Ox 98.7 F 85 16 136/53 93 08/31/17 12:58 08/31/17 12:58 08/31/17 12:58 08/31/17 12:58 08/31/17 12:58 General appearance: Present: no acute distress, well-nourished - EENT Eyes: Present: PERRL, EOM intact - Neck Neck: Present: supple, normal ROM - Respiratory Respiratory effort: normal Respiratory: bilateral: diminished, negative: rales, rhonchi, wheezing - Cardiovascular Rhythm: regular Heart Sounds: Present: S1 & S2 - Extremities Extremities: no ischemia, No edema - Abdominal General gastrointestinal: soft, non-tender, non-distended, normal bowel sounds - Integumentary Integumentary: Present: clear, warm - Psychiatric Psychiatric: appropriate mood/affect, cooperative - Neurologic Neurologic: CNII-XII intact, moves all extremities Results - Labs CBC & Chem 7: 08/31/17 05:43 08/31/17 05:43 Labs: Laboratory Last Values WBC 7.8 K/mm3 (4.5-11.0) 08/31/17 05:43 RBC 5.15 M/mm3 (3.65-5.03) H 08/31/17 05:43 Hgb 14.9 gm/dl (11.8-15.2) 08/31/17 05:43 Hct 44.8 % (35.5-45.6) 08/31/17 05:43 MCV 87 fl (84-94) 08/31/17 05:43 MCH 29 pg (28-32) 08/31/17 05:43 MCHC 33 % (32-34) 08/31/17 05:43 RDW 14.1 % (13.2-15.2) 08/31/17 05:43 Plt Count 170 K/mm3 (140-440) 08/31/17 05:43 Lymph % (Auto) 16.4 % (13.4-35.0) 08/31/17 05:43 [place] % (Auto) 9.7 % (0.0-7.3) H 08/31/17 05:43 Eos % (Auto) 2.9 % (0.0-4.3) 08/31/17 05:43 Baso % (Auto) 0.6 % (0.0-1.8) 08/31/17 05:43 Lymph # 1.3 K/mm3 (1.2-5.4) 08/31/17 05:43 [place] # 0.8 K/mm3 (0.0-0.8) 08/31/17 05:43 Eos # 0.2 K/mm3 (0.0-0.4) 08/31/17 05:43 Baso # 0.0 K/mm3 (0.0-0.1) 08/31/17 05:43 Seg Neutrophils % 70.4 % (40.0-70.0) H 08/31/17 05:43 Seg Neutrophils # 5.5 K/mm3 (1.8-7.7) 08/31/17 05:43 PT 13.5 Sec. (12.2-14.9) 08/28/17 13:34 INR 0.98 (0.87-1.13) 08/28/17 13:34 APTT 35.9 Sec. (24.2-36.6) 08/28/17 13:34 Heparin Anti-Xa Level 0.27 U.I./ml (0.3-0.7) L 08/30/17 14:56 Sodium 139 mmol/L (137-145) 08/31/17 05:43 Potassium 3.7 mmol/L (3.6-5.0) 08/31/17 05:43 Chloride 95.7 mmol/L (98-107) L 08/31/17 05:43 Carbon Dioxide 27 mmol/L (22-30) 08/31/17 05:43 Anion Gap 20 mmol/L 08/31/17 05:43 BUN 40 mg/dL (9-20) H 08/31/17 05:43 Creatinine 2.5 mg/dL (0.8-1.5) H 08/31/17 05:43 Estimated GFR 26 ml/min 08/31/17 05:43 BUN/Creatinine Ratio 16 % 08/31/17 05:43 Glucose 199 mg/dL (75-100) H 08/31/17 05:43 POC Glucose 276 (70-105) H 08/31/17 12:04 Hemoglobin A1c 10.0 % (4-6) H 08/29/17 05:11 Calcium 9.2 mg/dL (8.4-10.2) 08/31/17 05:43 Total Bilirubin 0.80 mg/dL (0.1-1.2) 08/28/17 04:01 AST 27 units/L (5-40) 08/28/17 04:01 ALT 24 units/L (7-56) 08/28/17 04:01 Alkaline Phosphatase 103 units/L (35-129) 08/28/17 04:01 Total Creatine Kinase 457 units/L (55-170) H 08/28/17 13:34 CK-MB (CK-2) 33.0 ng/mL (0.0-4.0) H 08/28/17 13:34 CK-MB (CK-2) Rel Index 7.2 (0-4) H 08/28/17 13:34 Troponin T 0.932 ng/mL (0.00-0.029) H* D 08/28/17 13:34 NT-Pro-B Natriuret Pep 5522 pg/mL (0-900) H 08/28/17 04:01 Total Protein 7.2 g/dL (6.3-8.2) 08/28/17 04:01 Albumin 4.2 g/dL (3.9-5) 08/28/17 04:01 Albumin/Globulin Ratio 1.4 % 08/28/17 04:01 Triglycerides 263 mg/dL (2-149) H 08/28/17 04:01 Cholesterol 188 mg/dL (50-199) 08/28/17 04:01 LDL Cholesterol Direct 98 mg/dL (50-130) 08/28/17 04:01 HDL Cholesterol 38 mg/dL (40-59) L 08/28/17 04:01 Cholesterol/HDL Ratio 4.94 % 08/28/17 04:01 Urine Color Yellow (Yellow) 08/28/17 08:53 Urine Turbidity Clear (Clear) 08/28/17 08:53 Urine pH 6.0 (5.0-7.0) 08/28/17 08:53 Ur Specific [place] 1.005 (1.003-1.030) 08/28/17 08:53 Urine Protein <15 mg/dl mg/dL (Negative) 08/28/17 08:53 Urine Glucose (UA) >=500 mg/dL (Negative) 08/28/17 08:53 Urine Ketones Neg mg/dL (Negative) 08/28/17 08:53 Urine Blood Sm (Negative) 08/28/17 08:53 Urine Nitrite Neg (Negative) 08/28/17 08:53 Urine Bilirubin Neg (Negative) 08/28/17 08:53 Urine Urobilinogen < 2.0 mg/dL (<2.0) 08/28/17 08:53 Ur Leukocyte Esterase Neg (Negative) 08/28/17 08:53 Urine WBC (Auto) < 1.0 /HPF (0.0-6.0) 08/28/17 08:53 Urine RBC (Auto) 1.0 /HPF (0.0-6.0) 08/28/17 08:53
== END 2017-08-31 16:45 | disposition home health service (06) | DRG 280 ==
LOC: SUATTDRO 03:44 → ED 03:44 → 4A 05:50
PROVIDERS: ADMIT Internal Medicine; ATTEND Internal Medicine
PROC: 5A09357 Assistance with Respiratory Ventilation, Less than 24 Consecutive Hours, Continuous Positive Airway Pressure (ICD-10-PCS; principal; 2017-08-28)
DX: I21.4 Non-ST elevation (NSTEMI) myocardial infarction (principal); I50.23 Acute on chronic systolic (congestive) heart failure; J96.01 Acute respiratory failure with hypoxia; I13.0 Hypertensive heart and chronic kidney disease with heart failure and stage 1 through stage 4 chronic kidney disease, or unspecified chronic kidney disease; N17.9 Acute kidney failure, unspecified; N13.30 Unspecified hydronephrosis; I25.10 Atherosclerotic heart disease of native coronary artery without angina pectoris; N18.9 Chronic kidney disease, unspecified; Z88.8 Allergy status to other drugs, medicaments and biological substances; Z95.1 Presence of aortocoronary bypass graft; Z86.73 Personal history of transient ischemic attack (TIA), and cerebral infarction without residual deficits; E11.22 Type 2 diabetes mellitus with diabetic chronic kidney disease; Z79.82 Long term (current) use of aspirin; Z79.4 Long term (current) use of insulin; Z82.49 Family history of ischemic heart disease and other diseases of the circulatory system; Z95.810 Presence of automatic (implantable) cardiac defibrillator; I25.5 Ischemic cardiomyopathy; R33.9 Retention of urine, unspecified
CPT/HCPCS: 36415; 71045; 74176; 80048; 80053; 80061; 81001; 82550; 82553; 82962; 83036; 83880; 84484; 85014; 85018; 85025; 85049; 85520; 85610; 85730; 93005; 93010; 93306; 93970; 96374; 96376; 99291; A9270-GY; J0360; J1644; J1650; J1815; J1940